=== PATIENT | female | born 2000 | race Caucasian/White ===

== ENCOUNTER 2022-03-05 15:43 | Emergency (ER) | payer OTHER, SELFPAY ==
[2022-03-05 15:44] VITALS: BP 154/74; PULSE 81; RESP 16; TEMP 36.8; O2SAT 98; BMI 28.7
--- NOTE | 2022-03-05 18:02 | CTR_ITS ---
PROCEDURE INFORMATION: Exam: CT Head Without Contrast Exam date and time: 03/05/2022 6:39 PM Age: 21 years old Clinical indication: Pain; Headache not specified; Additional info: Change in PRICE with blurred vision, hcg results pending. Ok to do CT as soon as resulted neg hcg TECHNIQUE: Imaging protocol: Computed tomography of the head without contrast. Radiation optimization: All CT scans at this facility use at least one of these dose optimization techniques: automated exposure control; mA and/or kV adjustment per patient size (includes targeted exams where dose is matched to clinical indication); or iterative reconstruction. COMPARISON: No relevant prior studies available. RADIATION DOSE METRICS: Total DLP (mGy-cm): 1053.27 FINDINGS: Brain: Normal. No hemorrhage. Unremarkable white matter. No mass effect. Cerebral ventricles: No ventriculomegaly. Paranasal sinuses: Visualized sinuses are unremarkable. No fluid levels. Mastoid air cells: Visualized mastoid air cells are well aerated. Bones/joints: Unremarkable. No acute fracture. Soft tissues: Unremarkable. CT/CT head wo con* [id number] IMPRESSION: No acute intracranial abnormality.
[2022-03-05 18:08] LABS: Add Urine Microscopic? NO; Charge for UA Resulting for Rev
[2022-03-05 18:09] LABS: Urine Appearance Clear (CLEAR); Urine Color Yellow (Yellow)
[2022-03-05 18:10] LABS: Bilirubin Urine Neg (Negative); Blood Urine Neg (Negative); Glucose Urine UA Norm (Normal); Ketones Urine Negative (Negative); Leukocyte Esterase Urine Negative (Negative); Nitrate Urine Negative (Negative); Protein Urine Neg (Negative); Urobilinogen Urine Neg (Negative); pH Urine 7 (5-7)
--- NOTE | 2022-03-05 18:23 | W.ED.HA ---
HPI - Headache General: Chief Complaint: Headache Stated Complaint: Head pain Time Seen by Provider: 03/05/22 17:49 History of Present Illness: 21-year-old female in today for weird changes in her vision and headache. She reports that in the past she has had headaches/migraines but over the past month and a half she has been having different sensations. She reports that she will suddenly get strong smell and then developed pain at the base of her throat and then a sharp pain at the posterior head. She reports that her vision becomes very blurry and it all lasts just a matter of seconds and then it all of the symptoms are gone. She reports it has been that exact same scenario intermittently over the past month. Reports that she has had more more frequent just dull headaches. Denies any fever, chills, nausea, vomiting. She denies that she is . She does have a family history of brain aneurysm. Patient denies any symptoms at this moment Associated symptoms: Deny chest pain or fever(s) Review of Systems Const: Denies: fever(s) or chills Eyes: Reports: change in vision and blurry vision Card: Denies: chest pain or palpitations Resp: Denies: dyspnea Neuro: Reports: headache(s); Denies: numbness in extremities, weakness in extremities or Slurred speech present [facility] Female Reproductive History: Date of last menstrual period: 02/07/22 Physical Exam Const: COMMON NORMALS: no acute distress, patient oriented x3 and alert HENMT: COMMON NORMALS: EAC's normal, TM's normal bilaterally and Normal nasal mucous membranes and turbinates present NOSE: Normal nasal mucous membranes and turbinates present EXTERNAL AUDITORY CANAL: EAC's normal TYMPANIC MEMBRANE: TM's normal bilaterally Eye: COMMON NORMALS: Equal, round and reactive pupils present and EOMs intact bilaterally PUPIL: Yes Equal, round and reactive pupils present Lymph: LYMPHATIC: no lymphadenopathy noted Resp: COMMON NORMALS: normal respiratory effort, No use of accessory muscles and clear to auscultation bilaterally AUSCULTATION: clear to auscultation bilaterally Cardio: COMMON NORMALS: regular rate, regular rhythm, S1 normal heart sound present, S2 normal heart sound present and No murmurs present (Cardio) RATE: regular rate RHYTHM: regular rhythm HEART SOUNDS: S1 normal heart sound present and S2 normal heart sound present Neuro: COMMON NORMALS: patient oriented x3, CN's II-XII intact bilaterally, moves all extremities, no focal motor deficits and no sensory deficits noted SENSORIUM/ORIENTATION: Yes alert Course Vital Signs: Vital signs: Vital Signs Temperature 98.2 F 03/05/22 15:44 Pulse Rate 81 03/05/22 15:44 Respiratory Rate 16 03/05/22 15:44 Blood Pressure 154/74 03/05/22 15:44 Pulse Oximetry 98 03/05/22 15:44 Oxygen Delivery Me thod 03/05/22 15:44 MDM - Headache Medical Decision Making This is a 21-year-old female that is in today for a change in her headaches. She reports that she has chronically had migraines or headaches that she has self medicated at home. She reports that she usually does get blurred vision whenever she gets her headaches but she never typically gets a smell right before then. She reports that these headaches are definitely different that she has been having for the past month month and a half. He states that she always gets the same smell and then has pain at the bottom of her throat and at the back of her head. She reports that the headaches only lasts a few seconds. And then those symptoms resolved and she is left with a dull headache. She has only had a dull headache and here, but no other abnormal smells or pain in her throat or the back of her head since she has been in the ER. He is mostly concerned because she has a family history of brain aneurysm and she has had a change in her headache pattern. She denies that she has ever had a head CT. Negative for . Head CT is negative for acute intracranial abnormality. Patient is really not symptomatic at this time I offered her Toradol for her dull headache and she declined. Advised patient to follow-up with primary care provider I sent a referral to case management to establish her with a primary care provider. She may at some point need to see neurology for the headaches however I advised her at this time to keep a headache journal to take to her primary care provider when she establishes. Return to the ER for any new or worsening symptoms. Lab Data : 03/05/22 18:16 03/05/22 18:[address] 03/05/22 18:02 IMPRESSION: No acute intracranial abnormality. Laboratory Results WBC 9.8 10^3/uL (4.5-13.0) 03/05/22 18:16 RBC 4.50 10^6/uL (4.1-5.3) 03/05/22 18:16 Hgb 13.0 g/dL (11.5-15.3) 03/05/22 18:16 Hct 40.3 % (37.0-47.0) 03/05/22 18:16 MCV 89.6 fl (81-99) 03/05/22 18:16 MCH 28.9 pg (28.0-34.0) 03/05/22 18:16 MCHC 32.3 g/dL (30.0-36.0) 03/05/22 18:16 RDW 12.7 % (12.1-15.1) 03/05/22 18:16 Plt Count 279 10^3/cmm (130-400) 03/05/22 18:16 MPV 10.3 fL (7.4-10.4) 03/05/22 18:16 Neut % (Auto) 58.3 % 03/05/22 18:16 Lymph % (Auto) 32.9 % 03/05/22 18:16 [place] % (Auto) 6.5 % 03/05/22 18:16 Eos % (Auto) 1.6 % 03/05/22 18:16 Baso % (Auto) 0.6 % 03/05/22 18:16 Neut # (Auto) 5.68 10^3/uL (1.8-8.0) 03/05/22 18:16 Lymph # (Auto) 3.2 10^3/uL (1.5-6.5) 03/05/22 18:16 [place] # (Auto) 0.6 10^3/uL (0.2-0.9) 03/05/22 18:16 Eos # (Auto) 0.2 10^3/uL (0.0-0.8) 03/05/22 18:16 Baso # (Auto) 0.1 10^3/uL (0.0-0.1) 03/05/22 18:16 Nucleated RBC % (auto) 0 % 03/05/22 18:16 Nucleated RBCs # 0.0 /100WBC 03/05/22 18:16 Sodium 138 mmol/L (136-145) 03/05/22 18:16 Potassium 3.7 mmol/L (3.5-5.1) 03/05/22 18:16 Chloride 105 mmol/L (98-107) 03/05/22 18:16 Carbon Dioxide 24 mmol/L (22-29) 03/05/22 18:16 Anion Gap 12.7 (5-19) 03/05/22 18:16 BUN 11 mg/dL (6-20) 03/05/22 18:16 Creatinine 0.5 mg/dL (0.5-0.9) 03/05/22 18:16 GFR Calculation 158.9 mL/min (90-130) H 03/05/22 18:16 Glucose 86 mg/dL (65-115) 03/05/22 18:16 Calculated Osmolality 285 mOsm/kg (285-295) 03/05/22 18:16 Calcium 8.8 mg/dL (8.5-10.5) 03/05/22 18:16 Total Bilirubin 0.2 mg/dL (0.15-1.2) 03/05/22 18:16 AST 16 U/L (0-32) 03/05/22 18:16 ALT 23 U/L (0-33) 03/05/22 18:16 Alkaline Phosphatase 84 U/L (35-105) 03/05/22 18:16 Total Protein 7.2 g/dL (6.6-8.7) 03/05/22 18:16 Albumin 4.1 g/dL (3.5-5.2) 03/05/22 18:16 Globulin 3.1 g/dL (1.3-4.6) 03/05/22 18:16 Urine Color Yellow (Yellow) 03/05/22 17:55 Urine Appearance Clear (CLEAR) 03/05/22 17:55 Urine pH 7 (5-7) 03/05/22 17:55 Ur Specific [place] 1.010 (1.005-1.030) 03/05/22 17:55 Urine Protein Neg (Negative) 03/05/22 17:55 Urine Glucose (UA) Norm (Normal) 03/05/22 17:55 Urine Ketones Negative (Negative) 03/05/22 17:55 Urine Blood Neg (Negative) 03/05/22 17:55 Urine Nitrate Negative (Negative) 03/05/22 17:55 Urine Bilirubin Neg (Negative) 03/05/22 17:55 Urine Urobilinogen Neg mg/dL (Negative) 03/05/22 17:55 Ur Leukocyte Esterase Negative (Negative) 03/05/22 17:55 Urine HCG, Qual Negative (Negative) 03/05/22 17:55 Discharge Plan Discharge Patient Disposition: Home Clinical Impression: Headache Condition: Stable Discharge Orders: Discharge ED (Routine); Ordered 03/05/22 Ordered By: Nabila Draper Discharge Diet: Usual diet Discharge Activity: Resume usual activity Activity Restrictions/Additional Instructions: Your CAT scan was negative today. I referred you to be set up with a primary care provider. I would like you to follow-up with them. In the meanwhile keep a headache journal. You did not want to have the Toradol in ER tonight so you can take ibuprofen when you get home. Make sure that you take that with food. You can take ibuprofen every 8 hours as needed for headache. Be sure to follow-up with primary care provider. Return to the ER for any new or worsening symptoms. Coding Level of Care Code ED [employer] / [employer]er for [employer]ue [employer]wtrav[employer] Exam Detailed
[2022-03-05 18:24] LABS: Basophils # 0.1 10^3/uL (0.0-0.1); Basophils % 0.6 %; Eosinophils # 0.2 10^3/uL (0.0-0.8); Eosinophils % 1.6 %; Hematocrit 40.3 % (37.0-47.0); Lymphocytes # 3.2 10^3/uL (1.5-6.5); Lymphocytes % 32.9 %; Mean Corpuscular HGB Conc 32.3 g/dL (30.0-36.0); Mean Corpuscular Hemoglobin 28.9 pg (28.0-34.0); Mean Corpuscular Volume 89.6 fl (81-99); Mean Platelet Volume 10.3 fL (7.4-10.4); Monocytes # 0.6 10^3/uL (0.2-0.9); Monocytes % 6.5 %; Neutrophils # 5.68 10^3/uL (1.8-8.0); Neutrophils % 58.3 %; Nucleated Red Blood Cells % 0 %; Platelet Count 279 10^3/cmm (130-400); Red Cell Distribution Width 12.7 % (12.1-15.1); White Blood Count 9.8 10^3/uL (4.5-13.0)
[2022-03-05 18:43] LABS: Alanine Aminotransferase 23 U/L (0-33); Albumin Level 4.1 g/dL (3.5-5.2); Alkaline Phosphatase 84 U/L (35-105); Anion Gap 12.7 (5-19); Aspartate Amino Transferase 16 U/L (0-32); Blood Urea Nitrogen 11 mg/dL (6-20); Calcium 8.8 mg/dL (8.5-10.5); Carbon Dioxide 24 mmol/L (22-29); Chloride 105 mmol/L (98-107); Globulin 3.1 g/dL (1.3-4.6); Glomerular Filtration Rate 158.9 mL/min (90-130); Glucose 86 mg/dL (65-115); Osmolality Calculated 285 mOsm/kg (285-295); Potassium 3.7 mmol/L (3.5-5.1); Sodium 138 mmol/L (136-145); Total Bilirubin 0.2 mg/dL (0.15-1.2); Total Protein 7.2 g/dL (6.6-8.7)
[2022-03-05 19:52] VITALS: BP 118/76; PULSE 60; RESP 20; TEMP 36.8; O2SAT 99
--- NOTE | 2022-03-06 11:31 | DCPLANNER ---
computer systems manager had message to speak with patient about getting established with a primary care physician. computer systems manager called patient, unable to speak with patient and unable to leave a voicemail for patient.
== END 2022-03-05 19:57 | disposition home or self-care (01) ==
PROVIDERS: Family Medicine; Emergency Provider Nurse Practitioner Family
DX: R51.9 Headache, unspecified (principal)
CPT/HCPCS: 36415; 70450; 80053; 81003; 81025; 85025; 99284

== ENCOUNTER 2023-01-29 06:57 | Outpatient (CLI) | payer BC, OTHER, SELFPAY ==
--- NOTE | 2023-01-29 07:15 | US_ITS ---
WS: [id number] ULTRASOUND SOFT TISSUES anterior LEFT lower extremity. HISTORY: R22.42 - Localized swelling, mass and lump, left lower limb COMPARISON: None available. TECHNIQUE: 2-D and color Doppler imaging is submitted. Patient directed to the area of interest. There is a very subtle hypoechoic area measuring 7 x 2 x 5 mm over the anterior proximal tibia. This is a soft tissue nodule with which is nearly isoechoic to t he adjacent subcutaneous fat. This is very nonspecific. No increased vascularity. IMPRESSION: Very subtle, nearly isoechoic nodule in the anterior soft tissues of the LEFT lower extremity. May be a small fibroma. Does not appear to be a lymph node. No abscess. Benign in appearance.
== END 2023-01-29 06:58 | disposition home or self-care (01) ==
PROVIDERS: PCP Nurse Practitioner Family; Visit Provider Nurse Practitioner Family
DX: R22.42 Localized swelling, mass and lump, left lower limb (principal); Z78.9 Other specified health status
CPT/HCPCS: 76882

== ENCOUNTER 2023-05-11 06:00 | Outpatient (RCR) | payer BC, OTHER, SELFPAY | END 2023-05-30 23:59 | disposition home or self-care (01) | LOC: SPT 06:00 | PROVIDERS: Visit Provider Nurse Practitioner Family | DX: M51.26 Other intervertebral disc displacement, lumbar region (principal) | CPT/HCPCS: 97110; 97112; 97161; 97530 ==

== ENCOUNTER 2023-05-31 06:00 | Outpatient (RCR) | payer BC, OTHER, SELFPAY | END 2023-06-30 23:59 | disposition home or self-care (01) | LOC: SPT 06:00 | PROVIDERS: PCP Family Medicine; Visit Provider Nurse Practitioner Family | DX: M51.26 Other intervertebral disc displacement, lumbar region (principal) | CPT/HCPCS: 97110; 97112; 97530 ==

== ENCOUNTER 2023-07-01 06:00 | Outpatient (RCR) | payer BC, OTHER, SELFPAY | END 2023-07-29 23:59 | disposition home or self-care (01) | LOC: SPT 06:00 | PROVIDERS: PCP Family Medicine; Visit Provider Nurse Practitioner Family | DX: M51.26 Other intervertebral disc displacement, lumbar region (principal) | CPT/HCPCS: 97110; 97530 ==

== ENCOUNTER → 2025-05-05 13:06 | Outpatient (BNVA) | payer BC, OTHER, SELFPAY | PROVIDERS: PCP Family Medicine; Visit Provider Registered Nurse Neonatal Intensive Care | DX: R10.A2 Flank pain, left side (principal); R39.89 Other symptoms and signs involving the genitourinary system | CPT/HCPCS: 81000; 87086 ==